=== PATIENT | female | born 2000 | race African-American/Black ===

== ENCOUNTER 2022-02-28 14:21 | Emergency (ER) | payer MEDICAID ==
[~2022-02-28] VITALS: Ht 170.2 cm; Wt 91.0 kg
[2022-02-28] MEDS ORDERED: IBUP-2030 MT (15:43)
[2022-02-28] MEDS ORDERED: CYCL5TAB MT (15:43)
[2022-02-28] MEDS ORDERED: IBUPROFEN 800MG TABLET PO ONE (15:45)
[2022-02-28] MEDS ORDERED: CYCLOBENZAPRINE 10MG TABLET PO ONE (15:45)
[2022-02-28 15:55] VITALS: BP 128/67
== END 2022-02-28 16:04 | disposition home or self-care (01) ==
LOC: ER 14:21
DX: S33.5XXA Sprain of ligaments of lumbar spine, initial encounter (principal); V89.2XXA Person injured in unspecified motor-vehicle accident, traffic, initial encounter; Y93.89 Activity, other specified; Y92.89 Other specified places as the place of occurrence of the external cause; Y99.8 Other external cause status
CPT/HCPCS: 81025; 99283